=== PATIENT | male | born 1975 | race Caucasian/White ===

== ENCOUNTER 2022-11-10 04:19 | Observation (INO) | payer BC ==
[~2022-11-10] VITALS: Ht 170.2 cm; Wt 95.3 kg
[2022-11-10] MEDS ORDERED: ENOXAPARIN SODIUM INJ 100 MG/ML SYR SC STA (06:39)
[2022-11-10] MEDS ORDERED: ENOXAPARIN SODIUM INJ 100 MG/ML SYR SC ONE (06:48)
[2022-11-10] MEDS ORDERED: SODIUM CHLORIDE FLUSH 10 ML SYR INJ PRN (07:15)
[2022-11-10 09:08] VITALS: BP 124/78
[2022-11-10 13:17] VITALS: BP 110/73
[2022-11-10] MEDS ORDERED: METOPROLOL SUCC50 MG PO (15:36)
[2022-11-10] MEDS ORDERED: LISINOPRIL-HCT1 EAC1 (15:36)
[2022-11-10 16:36] VITALS: BP 109/74
[2022-11-10] MEDS ORDERED: ELIQUIS5 MG PO (17:25)
[2022-11-10] MEDS ORDERED: CLINDAMYCIN HC150 MG PO (17:25)
== END 2022-11-10 18:07 | disposition home or self-care (01) ==
LOC: FSED 04:38 → ERHOLD 07:16 → MED/SURG2 08:41
PROVIDERS: ADMIT Family Medicine; ATTEND Family Medicine
DX: I80.01 Phlebitis and thrombophlebitis of superficial vessels of right lower extremity (principal); I10 Essential (primary) hypertension; Z88.0 Allergy status to penicillin; X50.1XXA Overexertion from prolonged static or awkward postures, initial encounter; Z20.822 Contact with and (suspected) exposure to COVID-19; Z79.899 Other long term (current) drug therapy
CPT/HCPCS: 80053; 85025; 85610; 93005; 93971; 99284; G0378; J1650; U0002